=== PATIENT | female | born 1955 | race Native Hawaiian/Other Pacific Islander ===

== ENCOUNTER 2019-10-06 12:02 | Emergency (ER) | payer OTHER ==
[~2019-10-06] VITALS: Ht 177.8 cm; Wt 103.9 kg
[2019-10-06 14:53] LABS: PLATELET COUNT 139 K/uL (152-353)
[2019-10-06 16:02] VITALS: BP 141/61; TEMP 98.3
[2019-10-07] MEDS ORDERED: BUSP15TAB2 PO (01:20)
[2019-10-07] MEDS ORDERED: CALCIUM CARB500 MG PO (01:21)
[2019-10-07] MEDS ORDERED: DIVA500T2 (01:22)
[2019-10-07] MEDS ORDERED: CARTIA XT120 MG PO (01:25)
[2019-10-07] MEDS ORDERED: FLUOCINONIDE0.051 EX (01:27)
[2019-10-07] MEDS ORDERED: KP FOLIC ACID1 MG PO (01:29)
[2019-10-07] MEDS ORDERED: TIROSINT25 MCG PO (01:30)
[2019-10-07] MEDS ORDERED: LOPROX CREAM TOP (01:32)
[2019-10-07] MEDS ORDERED: SM MELATONIN5 MG PO (01:33)
[2019-10-07] MEDS ORDERED: POTASSIUM CHLO10 MEQ PO (01:35)
[2019-10-07] MEDS ORDERED: SEROQUEL25 MG (01:36)
[2019-10-07] MEDS ORDERED: SEROQUEL50 MG PO ×2 (01:38→11:20)
[2019-10-07] MEDS ORDERED: SERTRALINE HYD100 MG PO ×2 (01:39→11:22)
[2019-10-07] MEDS ORDERED: THIA100T8 PO (01:40)
[2019-10-07] MEDS ORDERED: TRAM50TA PO ×2 (01:42→11:23)
[2019-10-07] MEDS ORDERED: VITAMIN D2000 UNIT PO (01:43)
[2019-10-07] MEDS ORDERED: EZET10TA13 PO (01:44)
[2019-10-07] MEDS ORDERED: QUET25TA2 PO (11:19)
== END 2019-10-06 16:09 | disposition other institution (70) ==
LOC: ED 12:02
PROVIDERS: Family Medicine
DX: F03.91 Unspecified dementia, unspecified severity, with behavioral disturbance (principal); F22 Delusional disorders; Z03.818 Encounter for observation for suspected exposure to other biological agents ruled out; Z04.6 Encounter for general psychiatric examination, requested by authority
CPT/HCPCS: 36415; 80053; 81000; 85027; 87635; 93005; 96372; 99283; 99285; J3486; U0002

== ENCOUNTER 2019-11-03 20:32 | Emergency (ER) | payer OTHER ==
[~2019-11-03] VITALS: Ht 172.7 cm; Wt 93.9 kg
[~2019-11-03 20:32] MED LIST: BUSP15TAB2 PO; CALCIUM CARB500 MG PO; CARTIA XT120 MG PO; CHOL100034 PO; DIVA250T PO; DIVA500T2; DIVALPROEX500 MG PO; DOCU100C10 PO; ESCI10TA PO; EZET10TA13 PO; FLUOCINONIDE0.051 EX; KP FOLIC ACID1 MG PO; LOPROX CREAM TOP; MAGN400T4 PO; OXCARBAZEPIN300 MG PO; POTASSIUM CHLO10 MEQ PO; QUET25TA2 PO; RISP1TAB PO; SEROQUEL25 MG; SEROQUEL50 MG PO; SERTRALINE HYD100 MG PO; SM MELATONIN5 MG PO; THIA100T8 PO; TIROSINT25 MCG PO; TRAM50TA PO; VITAMIN D2000 UNIT PO
[2019-11-03 21:05] LABS: PLATELET COUNT 177 K/uL (152-353)
[2019-11-03 21:10] LABS: POTASSIUM 4.7 mmol/L (3.6-5.2)
[2019-11-03 22:18] VITALS: BP 130/75; TEMP 98.8
== END 2019-11-03 22:18 | disposition other institution (70) ==
LOC: ED 20:32
PROVIDERS: Family Medicine
DX: U07.1 COVID-19 (principal); F22 Delusional disorders; N39.0 Urinary tract infection, site not specified; F32.89 Other specified depressive episodes; Z04.6 Encounter for general psychiatric examination, requested by authority
CPT/HCPCS: 36415; 80053; 81000; 85027; 87086; 87088; 87635; 93005; 99283; 99285; U0002

== ENCOUNTER 2019-11-29 15:04 | Emergency (ER) | payer OTHER ==
[~2019-11-29] VITALS: Ht 175.3 cm; Wt 94.3 kg
[~2019-11-29 15:04] MED LIST changes: +ACET-206 PO; +BUSP5TAB2 PO; +LAMICTAL25 MG PO
[2019-11-29 15:44] LABS: PLATELET COUNT 205 K/uL (152-353)
[2019-11-29 16:10] LABS: POTASSIUM 3.6 mmol/L (3.6-5.2)
[2019-11-29 16:55] VITALS: BP 171/89; TEMP 98.7
[2019-11-29] MEDS ORDERED: BUSP15TAB2 PO (21:22)
[2019-11-29] MEDS ORDERED: LEXAPRO10 MG PO (21:26)
[2019-11-29] MEDS ORDERED: HALO5INJ3 IM (21:28)
[2019-11-29] MEDS ORDERED: MAG OXIDE400 MG PO (21:30)
[2019-11-29] MEDS ORDERED: OXCARBAZEPIN300 MG PO (21:31)
[2019-11-29] MEDS ORDERED: OXCARBAZEPIN600 MG PO (21:32)
[2019-11-29] MEDS ORDERED: RISP1TAB PO (21:33)
[2019-11-29] MEDS ORDERED: TRAM50TA PO (21:34)
== END 2019-11-29 16:08 | disposition other institution (70) ==
LOC: ED 15:04
PROVIDERS: Emergency Medicine
DX: F03.91 Unspecified dementia, unspecified severity, with behavioral disturbance (principal); Z11.59 Encounter for screening for other viral diseases; Z04.6 Encounter for general psychiatric examination, requested by authority
CPT/HCPCS: 80053; 85027; 87635; 93005; 99283; U00003